=== PATIENT | male | born 1955 | race Caucasian/White ===

== ENCOUNTER 2020-12-20 04:01 | Outpatient (CLI) | payer OTHER, SELFPAY ==
[2020-12-20 12:43] LABS: Abs Immature Grans 0.01 10^3/uL (0.0-0.06); Absolute Basophil Count 0.07 10^3/uL (0.0-0.2); Absolute Eosinophil Count 0.14 10^3/uL (0.0-0.7); Absolute Lymphocyte Count 1.27 10^3/uL (1.2-3.4); Absolute Monocyte Count 0.41 10^3/uL (0.1-0.8); Basophils % 1.4; Eosinophils % 2.9; HCT 45.2 % (40.0-50.0); HGB 14.7 g/dL (13.5-17.5); Immature Grans % 0.2; Lymphocytes % 25.9; MCH 31.1 pg (27.0-33.0); MCHC 32.5 % (32.0-36.0); MCV 95.6 fL (80-95); Monocytes % 8.4; Neutrophils % 61.2; Nucleated RBC 0 %; Platelet Count 198 10^3/uL (130-400); RBC 4.73 10^6/uL (4.36-5.78); RDW 12.2 % (11.8-14.1)
[2020-12-20 13:31] LABS: ALT 38 U/L (16-63); AST 22 U/L (15-37); Albumin 4.1 g/dL (3.4-5.0); Alkaline Phosphatase 50 U/L (46-116); BUN 18 mg/dL (7-18); Bilirubin, Total 1.3 mg/dL (0.2-1.0); CREATININE 0.9 mg/dL (0.70-1.30); Calcium 8.8 mg/dL (8.5-10.1); Chloride 104 mmol/L (98-107); Ferritin 202 ng/mL (26-388); Glucose 91 mg/dL (74-106); Potassium 4.8 mmol/L (3.5-5.1); Sodium 139 mmol/L (136-145); TSH 0.98 uIU/mL (0.36-3.74); Total Protein 7.2 g/dL (6.4-8.2); Vitamin B12 325 pg/mL (193-986)
[2020-12-20 18:09] LABS: PSA, Screening 1.1 ng/mL (0.0-4.5)
== END 2020-12-20 04:02 | disposition home or self-care (01) ==
LOC: LOS 04:02
PROVIDERS: PCP Family Medicine; Visit Provider Family Medicine
DX: R53.83 Other fatigue (principal); N40.0 Benign prostatic hyperplasia without lower urinary tract symptoms; Z12.5 Encounter for screening for malignant neoplasm of prostate; R68.89 Other general symptoms and signs
CPT/HCPCS: 36415; 80053; 84153; 82607; 82728; 84443; 85025

== ENCOUNTER → 2021-12-31 01:58 | Outpatient (CLI) | payer OTHER, SELFPAY ==
--- NOTE | 2021-12-31 07:30 | DI.RAD_ITS ---
Exam(s) XR SHOULDER RT COMPLETE 2+V EXAM: XR SHOULDER RT COMPLETE 2+V CLINICAL HISTORY: right shoulder pain - no trauma,M25.511. TECHNIQUE: 2D digital imaging was performed. Five views. COMPARISON: No exams were available for comparison FINDINGS: BONES: No acute fracture is present. No bony destructive lesion is seen. JOINTS: No dislocation present. Mild spurring AC joint. Moderate narrowing of the glenohumeral join t space. Moderate periarticular spurring. SOFT TISSUE: Normal. IMPRESSION: Moderate degenerative changes DATA REPOSITORY: RADIATION DOSE DELIVERED:
--- NOTE | 2021-12-31 07:30 | DI.RAD_ITS ---
Exam(s) XR KNEE LT 3V AP,LAT,ELISHA EXAM: XR KNEE LT 3V AP,LAT,ELISHA CLINICAL HISTORY: Knee pain,M25.562. TECHNIQUE: 2D digital imaging was performed. Three views. COMPARISON: CR XR KNEE RT 3V AP,LAT,ELISHA from 12/31/2021 FINDINGS: BONES: No acute fracture is present. No bony destructive lesion is seen. JOINTS: The knee is normally aligned. No joint effusion is seen. Minimal periarticular spurring. SOFT TISSUE: Prominent medial venous varicosities. IMPRESSION: Prominent venous varicosities. Minimal degenerative changes. DATA REPOSITORY: RADIATION DOSE DELIVERED:
--- NOTE | 2021-12-31 07:30 | DI.RAD_ITS ---
Exam(s) XR KNEE RT 3V AP,LAT,ELISHA EXAM: XR KNEE RT 3V AP,LAT,ELISHA CLINICAL HISTORY: Knee pain,.25.561. TECHNIQUE: 2D digital imaging was performed. Three views. COMPARISON: No exams were available for comparison FINDINGS: BONES: No acute fracture is present. No bony destructive lesion is seen. Minimal periarticular spurri ng JOINTS: Joint spaces are well maintained. The knee is normally aligned. No joint effusion is seen. SOFT TISSUE: Chronic appearing calcifications adjacent to the lower pole of the patella which is not intra-articular. Medial venous varicosities. IMPRESSION: Venous varicosities. Minimal degenerative changes. DATA REPOSITORY: RADIATION DOSE DELIVERED:
== END ==
PROVIDERS: Visit Provider Nurse Practitioner Family
DX: M25.561 Pain in right knee (principal); M25.562 Pain in left knee; M25.511 Pain in right shoulder; M19.011 Primary osteoarthritis, right shoulder; M17.0 Bilateral primary osteoarthritis of knee; I83.93 Asymptomatic varicose veins of bilateral lower extremities
CPT/HCPCS: 73562; 73030

== ENCOUNTER → 2022-06-20 14:02 | Outpatient (BNVA) | payer MEDICARE, SELFPAY | PROVIDERS: PCP Nurse Practitioner Family; Referring Provider Family Medicine; Visit Provider Physical Therapy Assistant | DX: Z12.11 Encounter for screening for malignant neoplasm of colon (principal); Z86.010 Personal history of colon polyps ==

== ENCOUNTER 2022-08-01 07:10 | Day surgery (SDC) | payer MEDICARE, SELFPAY ==
--- NOTE | 2022-07-31 21:28 | W.PM.DSUDISC ---
Date of service: 08/01/22 Time of Service: 09:18 Discharge Plan Disposition Patient Disposition: Home Condition: Good Discharge Details Reason For Visit: Screening colonoscopy Attending Provider: Chepe Wolfe Primary Care Provider: Zaki Melendez Home Meds and New Rx's Prescriptions: Discontinued bisacodyl [Dulcolax (bisacodyl)] 5 mg tablet,delayed release (DR/EC) 5 mg PO ONCE Qty: 4 0RF Rx Instructions: Take according to provider's instructions for colonoscopy prep. polyethylene glycol 3350 17 gram/dose powder 17 g PO ONCE Qty: 238 0RF Rx Instructions: To be taken as directed by prescriber's office for colonoscopy prep. Discharge Instructions Instructions: Colorectal Polyps (GEN) Additional Instructions: Prasad, we were able to complete your colonoscopy without any difficulty today. The quality of your preparation was outstanding. We had great visualization. I found 2 tiny polyps. I removed both of these completely. I will be in touch when I have the report from the polypectomy results. 1. If tolerated, consume a soft, low fiber diet for 1-2 days. 2[address] Do not drive, drink alcohol, operate machinery, make critical decisions, or do activities that require coordination or balance for 24 hours. 3. Because air was put into your colon during the procedure, expelling air from your rectum (passing gas or farting) is normal. 4. You may not have a bowel movement for 1-3 days because of the colonoscopy prep. This is normal. 5. Go directly to the emergency room if you notice any of the following: Develop chills (warm to touch), or if you have a thermometer and your temperature is above 101 Difficulty breathing or difficultly swallowing Persistent vomiting Severe abdominal pain, other than gas cramps Severe chest pain Black, tarry stools Any bleeding ? exceeding one tablespoon 6. Call your physician if the site where your intravenous was started becomes red, swollen, painful, and warm to touch. 7. Your physician has reviewed your pre-procedure medications. Please continue to take those medications as previously ordered. You will be given specific information/education regarding any changes to your medications before leaving. Activity:: Activity as Tolerated Diet:: As Tolerated Discharge Orders Discharge Orders: Discharge Order (Routine); Ordered 07/31/22 Ordered By: Chepe Wolfe DS: Diagnosis Discharge Diagnosis (1) Screening for colon cancer: Status: Acute Asessment and Plan: Follow-up on polypectomy results
--- NOTE | 2022-07-31 21:30 | HPE_ITS ---
Assessment and Plan Assessment and plan (1) Screening for colon cancer: Status: Acute Assessment and plan: We discussed the role of screening colonoscopies as part of routine health maintenance as well as the risks and benefits. We will proceed with the colonoscopy as planned. History of Present Illness History of Present Illness Chief Complaint: Screening colonoscopy Narrative: 67 y/o male with history of SALUD, hemorrhoids and presents for colonoscopy screening pre-op. His last screening was in 2018, which was remarkable for tubular adenomatous polyps x2.. He denies a family history of colon cancer. He denies any changes in bowel habits stating that he intermittently experiences constipation.? He denies having any bloody or black tarry stools, abdominal pain, diarrhea or constipation. He denies constitutional symptoms. Denies use of marijuana or any other recreational or illegal drugs. He denies chest pain, palpitations, dyspnea or dyspnea with exertion.? Patient describes being very physically active frequently working in the [employer].? He states that he is able to do this without any shortness of breath or chest pain.? He denies prior history or family history of adverse reactions or complications with anesthesia. The patient denies any history of stroke, MO, seizures, bleeding or clotting disorders. He describes having metal implanted in his right hip. [facility] All Active Problems Screening for colon cancer (Acute) Shoulder pain, right (Acute) Knee pain, bilateral (Acute) BPH (benign prostatic hyperplasia) (Chronic) Fatigue (Acute) History of sleep disorder (Acute) Encounter for herpes zoster vaccination (Acute) Medical History Chest pain - 2004: ET-neg.; neg CXR - 2012: neg stress test/ Holter monitor:normal Cholelithiasis without obstruction Hemorrhoids Lumbago Obstructive sleep apnea Rectal hemorrhage Tubular adenoma (06/18/17) 2011: X3; Tubular adenoma 2013: fragment of tubulovillous adenoma ([place]) 2018, Dr Clemons, tubular adenoma x 2 Tubular adenoma of colon 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 (03/13/89) [facility] [place]: : conservative tx only Surgical History Cholecystectomy (~2007) Colonoscopy - MAC (09/13/13) Colonoscopy - MAC (05/30/17) Repair of inguinal hernia age 4 Status post cholecystectomy Status post hip replacement Status post inguinal hernia repair Status post scrotal varicocelectomy Total replacement of hip (~2006) Family History Mother , 95 Essential hypertension Stroke Diabetes Alzheimer's dementia Father Essential hypertension Alzheimer's dementia Sister Neoplasm SKIN Cancer Grandfather Prostate cancer Grandfather Neoplasm BONE AND COLON Prostate cancer Grandmother Stroke Grandmother Heart disease Social History Smoking/Tobacco Use Status: Never Second Hand Exposure: No Smoking risk assessment performed?: Yes Alcohol Intake: never Drug use: Never Substance use type: does not use Household members: spouse Housing: house Communication Needs: None Do you need help understanding health information?: Never Pets and animals: Yes Pets and animals: dog(s) and farm animals Sexually active: Yes Do you think of yourself as: straight/heterosexual Current gender identity: male What is your relationship status?: How often do you talk on the phone with friends or family?: three or more times per week How often do you get together with friends or relatives?: once per week How often do you attend druze or oriental orthodox services?: 4 or more times per year Do you belong to any clubs or organized social groups?: no Panel score (0-1 are the most socially isolated patients): 3 What type of physical activity do you participate in: regular exercise Frequency: daily Radha/Spiritism: Episcopalian Special radha needs: No Seatbelt use: always 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 Do you feel safe at home: Yes Do you feel safe in your relationship?: Yes Meds Allergies and Home Medications Allergies Allergy/AdvReac Type Severity Reaction Status Date / Time No Known Allergies Allergy Verified 07/30/22 15:17 Exam Const General: cooperative, healthy appearing and comfortable Orientation: awake and oriented x3 Eyes General: appearance normal, both eyes and all related structures Conjunctivae: conjunctivae normal Sclera: sclerae normal Resp Effort & Inspection: normal respiratory effort and able to speak in complete sentences Auscultation: clear to auscultation bilaterally Cardio Jugular venous pressure: no JVD Rate: regular rate Rhythm: regular rhythm Heart Sounds: S1 normal and S2 normal GI Inspection: non-distended Palpation: soft, no guarding, no hernias and nontender Auscultation: normal bowel sounds Skin General skin exam: normal turgor Neuro General: patient alert, patient awake and patient oriented x3 Cognition: normal cognition Extrem Right lower extremity: no edema Left lower extremity: no edema
--- NOTE | 2022-07-31 21:31 | COLE_ITS ---
Date of service: 08/01/22 Time of Service: 09:21 Colonoscopy Report Date of procedure: 08/01/22 Pre-op diagnosis general: Screening colonscopy Procedure: Colonoscopy Surgeon: Chepe Wolfe Anesthesia Type: General:No Airway Complications: None Disposition: same day Indications: Prasad is a 67 year old man in need of his next screening colonoscopy Prep: Miralax/Dulcolax Procedure Start Time: 08:46 Procedure End Time: 09:09 Retraction Time: 13 Findings: Colon polyps at 90 cm and 20 cm Procedure Description: After the induction of monitored anesthetic care, and with the patient in left lateral decubitus position, I began by performing an external anorectal exam.? Perineum and skin were normal, as was the anal verge.? There was no evidence of external hemorrhoids.? Next, I performed a digital rectal exam.? I did not appreciate any abnormal findings.? Next, I advanced a colonoscope into the rec moreno vault.? I performed retroflexion.? I this appeared normal.? Using insufflation, I then advanced the colonoscope beyond the rectal folds and into the sigmoid colon before advancing towards the cecum.? The quality of the prep was excellent.? The scope was noted to be in the cecum by identification of the ileocecal valve and appendiceal orifice.? I then began withdrawing the colonoscope using repeated irrigation as necessary for full evaluation of the colonic mucosa. Around 90 cm from the anal verge I identified a 0.25 cm polyp. ?It appeared sessile in character. ?I was able to remove this with a cold forceps polypectomy. ?I examined the site, and there was minimal bleeding. ?Once this was completed, I continued to withdraw the scope and examine the remainder of the colonic mucosa. Similar to the first polyp, around 20 cm from the anus was another 0.25 cm sessile polyp. I also removed this with cold forceps. There was minimal bleeding here. ?Once the scope was withdrawn to the level of the rectum, great care was taken to examine portions of the rectal folds.? Finally, the scope was withdrawn and the patient was brought to the same-day surgery recovery unit as the anesthetic wore off. ?The findings and instructions were shared with the patient prior to discharge.
[2022-08-01 07:23] VITALS: BP 155/94; PULSE 75; RESP 16; TEMP 36.1; O2SAT 99
[2022-08-01] MEDS: Lactated Ringers 1,000 ML 80 ML IV (07:54)
--- NOTE | 2022-08-01 08:29 | ANES.PREOP_ITS ---
General Info Date of Service Date Performed: 08/01/22 Height: 6 ft 2 in Weight: 110.2 kg Body Mass Index (BMI): 31.1 Surgical Procedure: Operation Date: 08/01/22 09:05 Proposed Procedure Side Surgeon p Colonoscopy Chepe Wolfe MD Meds Allergies and Home Medications Allergies Allergy/AdvReac Type Severity Reaction Status Date / Time No Known Allergies Allergy Verified 07/30/22 15:17 Current Visit Medications: Current Medications Generic Name Dose Route Start Last Admin Trade Name Freq PRN Reason Stop Dose Admin Hyoscyamine Sulfate 0.125 mg 07/31/22 21:33 Hyoscyamine 0.125 Mg Sl/Oral/Chew SL DIRECTED PRN Ringer's Solution 1,000 mls @ 80 mls/hr 08/01/22 06:00 08/01/22 07:54 IV 08/30/22 23:59 80 mls/hr INFUSION KRISS Administration IV Miscellaneous Supplies 1 each 08/01/22 06:00 Iv Access IV 08/30/22 23:59 DIRECTED KRISS Ondansetron HCl 4 mg 07/31/22 21:33 Ondansetron 4 Mg/2 Ml Vial IVP Q4H PRN PRN Nausea / Vomiting Sodium Chloride 0 ml 08/01/22 06:00 Normal Saline Flush 10 Ml Syr IV 08/30/22 23:59 PRN PRN Sodium Chloride 0 ml 08/01/22 06:00 Normal Saline 10 Ml Vial IJ 08/30/22 23:59 DIRECTED PRN Sterile Water 0 ml 08/01/22 06:00 Water,Injection,Sterile 10 Ml Vial IJ 08/30/22 23:59 DIRECTED PRN PFSH Active Problems Active Problems: Problem Status Onset Code Screening for colon cancer Z12.11 Shoulder pain, right M25.511 Knee pain, bilateral M25.561, M25.562 BPH (benign prostatic hyperplasia) N40.0 Fatigue R53.83 History of sleep disorder Z87.898 Encounter for herpes zoster vaccination Z23 Medical History Medical History Chest pain - 2004: ET-neg.; neg CXR - 2012: neg stress test/ Holter monitor:normal Cholelithiasis without obstruction Hemorrhoids Lumbago Obstructive sleep apnea Rectal hemorrhage Tubular adenoma (06/18/17) 2011: X3; Tubular adenoma 2014: fragment of tubulovillous adenoma ([place]) 2018, Dr Clemons, tubular adenoma x 2 Tubular adenoma of colon 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 (03/13/89) [facility] [place] md: : conservative tx only Surgical History Surgical History Cholecystectomy (~2007) Colonoscopy - MAC (09/13/13) Colonoscopy - MAC (05/30/17) Repair of inguinal hernia age 4 Status post cholecystectomy Status post hip replacement Status post inguinal hernia repair Status post scrotal varicocelectomy Total replacement of hip (~2006) Tobacco Smoking/Tobacco Use Status: Never Passive smoking exposure: No Second hand exposure: No Alcohol Alcohol Intake: never Substance Use Substance use: Never Substance use type: does not use Vital Signs and Lab Results Vital Signs Most Recent Vital Signs in EMR: Most Recent Vital Signs Temp Pulse Resp BP Pulse Ox 36.1 C L 75 16 155/94 H 99 08/01/22 07:23 08/01/22 07:23 08/01/22 07:23 08/01/22 07:23 08/01/22 07:23 Lab Results Blood Type / Crossmatch: No Data to Display Complete Blood Count: No Data to Display Complete Metabolic Panel: No Data to Display Liver Function Panel: No Data to Display Coagulation Panel: No Data to Display Cardiac Panel: 2 No Data to Display Arterial Blood Gas: No Data to Display Venous Blood Gas: No Data to Display Pancreas Panel: No Data to Display Thyroid Panel: No Data to Display Infectious Disease: No Data to Display Blood Cultures: No Data to Display Toxicology Panel: No Data to Display Imaging and Studies Imaging and Studies Study information below may be from another EMR and interpreted by another provider. Please see original notes in EMR for more complete details. Stress Test Summary: 11/01/2015: Stress results: There is a normal resting blood pressure with an appropriate response to stress. The rate-pressure product for the peak heart rate and blood pressure was 95012yb Hg/min. Mild stress-induced typical chest pain which resolved spontaneously. Exercise capacity is normal for age. Stress ECG: STRESS TEST ENDED IN 10 MINUTES AND 5 SECONDS DUE TO PT. FATIGUE. MAX HR: 167 % OF TARGET: 103% METS: 13.48 NORMAL BLOOD PRESSURE RESPONSE TO EXERCISE. FREQUENT PVC'S NOTED IN STAGE 2 WITH COUPLETS AND BRIEF QUADGEMINY PATTERN. COUPLETS AND 3 BEAT RUNS NOTED IN STAGE 3. ANGINA INCREASED FROM BASELINE 1/10 TO 2/10 AT STAGE 3 OF EXERCISE. ANGINA SUBSIDED AT 3 MINUTE RECOVERY PERIOD. AVERAGE CAPACITY OF EXERCISE FOR AGE. The stress ECG is negative. Occasional ventricular ectopy. Solorio treadmill score: 6. This score predicts a low risk of cardiac events. Myocardial perfusion: Imaging information: gated. The image quality was good. Left ventricular size is normal. No myocardial perfusion defects noted. Ventricular Function (Wall Motion): LV global systolic function is normal. No left ventricular regional motion abnormality. Anesthesia Assessment and Plan Anesthesia History Personal History: No History of Anesthesia Complications Family History: No Family History of Anesthesia Complications Exercise Tolerance Exercise Tolerance: Metabolic Equivalents>4 Pertinent Negatives Pertinent Negatives: No Symptoms of GERD, No Major Cardiovascular Symptoms or Complaints and No Major Pulmonary Symptoms or Complaints Cardiac & Pulmonary Exam Cardiac Exam: Normal S1/S2 Heart Sounds Pulmonary Exam: Clear Bilateral Breath Sounds Implantable Cardiac Device Does patient have a Pacemaker or an ICD?: No Airway Exam Known Difficult Airway: No Mallampati Class: 2 Mouth Opening: Normal (> 3cm) Thyromental Distance: Greater than 3 cm Neck Range of Motion: Full ROM Neck Circumference: Normal Teeth Condition: Normal Dentition ASA Classification ASA Score: ASA 2 Emergency Case?: No NPO Status NPO Status: NPO Clears >2 hours, Solids >8 hours Anesthesia Plan Resuscitation Status: Full Code Anesthesia Technique: General Anesthesia Airway Planned: Natural Airway Monitors Used: Standard Monitors
[2022-08-01 08:32] VITALS: BMI 31.1
--- NOTE | 2022-08-01 09:03 | BOWEL_PTH ---
PATIENT: Prasad Cm LOC: [facility] U#:[id number] AGE/SX: 67/M ROOM: RE08/01/[address]: Chepe Wolfe MD : [id number] BED: DIS: 08/01/2022 SPEC #: [id number] RECD: 08/01/22 12:30 STATUS: [place]ETHANY REQ #: [id number] DEVANG: 08/01/22 09:[address]: Chepe Wolfe DEPT: Surgical Specimen RECD BY: Katty Chaudhry ENTERED: 08/01/22 12:30 SP TYPE: Bowel OTHR DR: Zaki Neville DNP Tissues: 1 - BIOPSY BOWEL 2 - BIOPSY BOWEL Procedures: GROSS AND MICRO LEVEL 4 Comments: [id number]
[2022-08-01 09:17] VITALS: BP 107/75; PULSE 76; RESP 16; TEMP 36.2; O2SAT 98
--- NOTE | 2022-08-01 09:23 | W.ANESPOSTOP ---
Postoperative Evaluation Date, Time and Location Date Performed: 08/01/22 Time Performed: Patient Location: Day Surgery Unit Vital Signs Most Recent Imported Vital Signs: Most Recent Vital Signs Temp Pulse Resp BP Pulse Ox 36.2 C L 76 16 107/75 98 08/01/22 09:17 08/01/22 09:17 08/01/22 09:17 08/01/22 09:17 08/01/22 09:17 Pain Score Most Recent Pain Score: Most Recent Pain Score Pain Level 0 08/01/22 09:17 Assessment Mental Status: Awake (Alert & Oriented to Patient Baseline) Airway and Respiratory Function: Patent airway with normal (patient baseline) respiratory exam Cardiovascular Function: Hemodynamically Stable Hydration Status: Adequately Hydrated Nausea & Vomiting: No Nausea or Vomiting Pain: Pt. Denies Any Pain Peripheral Nerve Block: Patient did not receive a nerve block
[2022-08-01 09:48] VITALS: BP 126/87; PULSE 70; RESP 18; TEMP 36.4; O2SAT 98
== END 2022-08-01 10:03 | disposition home or self-care (01) ==
PROVIDERS: PCP Nurse Practitioner Family; Visit Provider Surgery
PROC: 0DJD8ZZ Inspection of Lower Intestinal Tract, Via Natural or Artificial Opening Endoscopic (ICD-10-PCS; CPT 45378; principal; 2022-08-01 09:00)
DX: Z12.11 Encounter for screening for malignant neoplasm of colon (principal); K63.5 Polyp of colon; Z86.010 Personal history of colon polyps; K63.89 Other specified diseases of intestine
CPT/HCPCS: 45380; 88305

== ENCOUNTER 2023-01-08 07:57 | Outpatient (CLI) | payer MEDICARE, SELFPAY ==
[2023-01-08 13:22] LABS: ALT 44 U/L (16-63); AST 26 U/L (15-37); Albumin 3.8 g/dL (3.4-5.0); Alkaline Phosphatase 57 U/L (46-116); Anion Gap 9.4 mmol/L (3-11); BUN 17 mg/dL (7-18); Bilirubin, Total 1.4 mg/dL (0.2-1.0); CO2 25.6 mmol/L (21.0-32.0); CREATININE 0.9 mg/dL (0.70-1.30); Calcium 9.3 mg/dL (8.5-10.1); Calculated LDL 97 mg/dL (<100); Chloride 104 mmol/L (98-107); Cholesterol 155 mg/dL (<200); Estimated GFR 94.78 (mL/min/1.73m2); Glucose 104 mg/dL (74-106); HDL Cholesterol 49 mg/dL (40-60); Potassium 3.9 mmol/L (3.5-5.1); Sodium 139 mmol/L (136-145); Total Protein 7.6 g/dL (6.4-8.2); Triglyceride 48 mg/dL (<150)
[2023-01-08 22:36] LABS: PSA, Screening 1.4 ng/mL (<=4.5)
[2023-01-09 10:21] LABS: HIV-1/2 Ag & Ab Screen Negative (Negative)
[2023-01-09 10:30] LABS: Hepatitis C Ab w Rflx HCV PCR Negative (Negative)
== END 2023-01-08 07:58 | disposition home or self-care (01) ==
LOC: LOS 07:58
PROVIDERS: PCP Nurse Practitioner Family; Referring Provider Nurse Practitioner Family; Visit Provider Nurse Practitioner Family
DX: Z13.220 Encounter for screening for lipoid disorders (principal); Z11.4 Encounter for screening for human immunodeficiency virus [HIV]; Z12.5 Encounter for screening for malignant neoplasm of prostate; Z11.59 Encounter for screening for other viral diseases
CPT/HCPCS: 36415; 80053; 80061; 84153; 86803; 87389

== ENCOUNTER 2024-01-13 08:38 | Outpatient (CLI) | payer MEDICARE, SELFPAY ==
[2024-01-13 12:26] LABS: HCT 45.1 % (40.0-50.0); MCH 31.2 pg (27.0-33.0); MCHC 33.3 % (32.0-36.0); MCV 94 fL (80-95); MPV 10.4 fL (8.0-11.0); Platelet Count 198 10^3/uL (130-400); RBC 4.81 10^6/uL (4.36-5.78); RDW 12.5 % (11.8-14.1); RDW-SD 43.2 fL
[2024-01-13 13:09] LABS: ALT 24 U/L (16-63); AST 17 U/L (15-37); Albumin 3.8 g/dL (3.4-5.0); Alkaline Phosphatase 60 U/L (46-116); Anion Gap 7.1 mmol/L (3-11); BUN 12 mg/dL (7-18); CO2 28.9 mmol/L (21.0-32.0); CREATININE 0.9 mg/dL (0.70-1.30); Calcium 8.9 mg/dL (8.5-10.1); Chloride 103 mmol/L (98-107); Estimated GFR 94.19 (mL/min/1.73m2); Glucose 95 mg/dL (74-106); Potassium 4.3 mmol/L (3.5-5.1); Sodium 139 mmol/L (136-145); TSH (W/Ref FT4) 1.21 uIU/mL (0.36-3.74); Total Protein 7.6 g/dL (6.4-8.2); Vitamin B12 550 pg/mL (193-986)
[2024-01-13 18:51] LABS: PSA, Screening 1.9 ng/mL (<=4.5)
== END 2024-01-13 08:39 | disposition home or self-care (01) ==
LOC: LOS 08:38
PROVIDERS: PCP Nurse Practitioner Family; Referring Provider Nurse Practitioner Family; Visit Provider Nurse Practitioner Family
DX: R53.83 Other fatigue (principal); R17 Unspecified jaundice; Z12.5 Encounter for screening for malignant neoplasm of prostate
CPT/HCPCS: 36415; 80053; 84153; 85027; 82607; 84443

== ENCOUNTER 2024-12-08 17:54 | Outpatient (REF) | payer MEDICARE, SELFPAY ==
[2024-12-08 20:16] LABS: Abs Immature Grans 0.01 10^3/uL (0.0-0.06); HCT 44.2 % (40.0-50.0); HGB 15.0 g/dL (13.5-17.5); Immature Grans % 0.1 %; MCH 31.3 pg (27.0-33.0); MCHC 33.9 % (32.0-36.0); MCV 92 fL (80-95); MPV 10.2 fL (8.0-11.0); Platelet Count 203 10^3/uL (130-400); RBC 4.79 10^6/uL (4.36-5.78); RDW 12.1 % (11.8-14.1); RDW-SD 41.3 fL; WBC 6.67 10^3/uL (4.4-10.8)
[2024-12-08 20:48] LABS: Hemoglobin A1C 5.7 % (<5.7)
[2024-12-08 21:34] LABS: ALT 28 U/L (16-63); AST 29 U/L (15-37); Albumin 4.1 g/dL (3.4-5.0); Alkaline Phosphatase 64 U/L (46-116); Anion Gap 8.5 mmol/L (3-11); BUN 21 mg/dL (7-18); Bilirubin, Direct 0.2 mg/dL (0.0-0.2); Bilirubin, Total 0.9 mg/dL (0.2-1.0); CO2 27.5 mmol/L (21.0-32.0); Calcium 8.7 mg/dL (8.5-10.1); Calculated LDL 96 mg/dL (<100); Chloride 103 mmol/L (98-107); Cholesterol 157 mg/dL (<200); Estimated GFR 97.00 (mL/min/1.73m2); Glucose 89 mg/dL (74-106); HDL Cholesterol 46 mg/dL (>or=40); Potassium 4.1 mmol/L (3.5-5.1); Sodium 139 mmol/L (136-145); TSH 1.30 uIU/mL (0.36-3.74); Total Protein 7.4 g/dL (6.4-8.2); Triglyceride 78 mg/dL (<150)
[2024-12-10 09:11] LABS: PSA, Diagnostic 2.0 ng/mL (<=4.5)
== END 2024-12-08 17:55 | disposition home or self-care (01) ==
LOC: NCHCN 17:54
PROVIDERS: Visit Provider Family Medicine
DX: R17 Unspecified jaundice (principal)
CPT/HCPCS: 80053; 80061; 82248; 83036; 84153; 84443; 85025